=== PATIENT | male | born 1960 | race Caucasian/White ===

== ENCOUNTER → 2019-04-06 | Outpatient (CLI) | payer OTHER | LOC: NUC 07:32 | DX: I25.10 Atherosclerotic heart disease of native coronary artery without angina pectoris (principal); E78.5 Hyperlipidemia, unspecified; I10 Essential (primary) hypertension; I25.2 Old myocardial infarction; F17.200 Nicotine dependence, unspecified, uncomplicated; Z79.899 Other long term (current) drug therapy ==

== ENCOUNTER → 2019-10-08 | Outpatient (CLI) | payer OTHER ==
--- NOTE | 2019-10-08 13:01 | 2DMMODE ---
[facility] [address] 2 D/M-MODE ECHOCARDIOGRAM Name: DELIA MIGUEL Room #: REG [facility].#: [id number] Admission: 10/08/19 Attend Phys: Raymon Cobb MD Discharge: Date of : 56 Report #: [id number] THIS REPORT FOR: cc: Johana Franco MD, Emily G. MD Park, Jin S. MD ~ APPROVED REPORT Study performed: 10/08/2019 10:15:15 EXAM: Comprehensive 2D, Doppler, and color-flow Echocardiogram Patient Location: Out-Patient BSA: 2.24 HR: 54 bpm BP: 128/86 mmHg Rhythm: NSR Other Information Study Quality: Good Indications CAD 2D Dimensions IVSd: 18.06 (7-11mm) LVOT Diam: 19.39 (18-24mm) LVDd: 41.45 mm PWd: 12.42 (7-11mm) LVDs: 29.11 (25-40mm) Aortic Root: 30.31 mm IVC: 13.00 mm Volumes Left Atrial Volume (Systole) Single Plane 4CH: 38.34 mL Single Plane 2CH: 37.34 mL LA ESV Index: 19.00 mL/m2 Aortic Valve AoV Peak Suresh.: 1.21 m/s AO Peak Gr.: 5.88 mmHg LVOT Max P.00 mmHg LVOT Max V: 1.00 m/s OMID Vmax: 2.43 cm2 Mitral Valve E/A Ratio: 1.2 [facility] [place] [address] 2 D/M-MODE ECHOCARDIOGRAM Name: DELIA MIGUEL Room #: REG [facility]#: [id number] Admission: 10/08/19 Attend Phys: Raymon Cobb MD Discharge: Date of : 56 Report #: [id number] MV Decel. Time: 224.90 ms MV E Max Suresh.: 0.67 m/s MV A Suresh.: 0.55 m/s MV PHT: 65.22 ms IVRT: 115.34 ms Pulmonary Valve PV Peak Suresh.: 0.85 m/s PV Peak Gr.: 2.91 mmHg Pulmonary Vein P Vein S: 0.49 m/s P Vein A: 0.31 m/s P Vein D: 0.53 m/s P Vein A Dur.: 92.3 msec P Vein S/D Ratio: 0.92 Tricuspid Valve TR Peak Suresh.: 2.19 m/s TR Peak Gr.: 19.18 mmHg PA Pressure: 24.00 mmHg Left Ventricle The left ventricle is normal size. There is normal left ventricular wall thickness. The left ventricular systolic function is normal. LVEF is 60%. Right Ventricle The right ventricle is normal size. The right ventricular systolic function is normal. Atria The left atrium size is normal. The right atrium size is normal. Aortic Valve The aortic valve is normal in structure. No aortic regurgitation is present. There is no aortic valvular stenosis. Mitral Valve The mitral valve is normal in structure. Mild mitral regurgitation. No evidence of mitral valve stenosis. Tricuspid Valve The tricuspid valve is normal in structure. Mild tricuspid regurgitation. Pulmonic Valve The pulmonary valve is normal in structure. There is no pulmonic [facility] [address] [place] [address] 2 D/M-MODE ECHOCARDIOGRAM Name: DELIA MIGUEL Room #: REG [facility]#: [id number] Admission: 10/08/19 Attend Phys: Raymon Cobb MD Discharge: Date of : 56 Report #: [id number] valvular regurgitation. Great Vessels The aortic root is normal in size. IVC is normal in size and collapses >50% with inspiration. Pericardium There is no pericardial effusion. <Conclusion> The left ventricle is normal size. The left ventricular systolic function is normal. The right ventricle is normal size. The left atrium size is normal. The aortic valve is normal in structure. Mild mitral regurgitation. Mild tricuspid regurgitation. <ELECTRONICALLY SIGNED> By: Raymon Cobb MD 10/08/19 1300 1300 1300 Raymon Cobb MD /INF
== END ==
LOC: CV 09:28
DX: I08.1 Rheumatic disorders of both mitral and tricuspid valves (principal); I25.10 Atherosclerotic heart disease of native coronary artery without angina pectoris

== ENCOUNTER → 2020-04-07 | Outpatient (CLI) | payer OTHER | LOC: SJCVC 11:04 | PROVIDERS: ATTEND Internal Medicine Cardiovascular Disease | DX: I25.10 Atherosclerotic heart disease of native coronary artery without angina pectoris (principal); E78.00 Pure hypercholesterolemia, unspecified; I10 Essential (primary) hypertension; F17.210 Nicotine dependence, cigarettes, uncomplicated; Z79.899 Other long term (current) drug therapy ==

== ENCOUNTER → 2021-01-05 | Outpatient (CLI) | payer OTHER | LOC: SJCVCIMAG 08:03 | PROVIDERS: ATTEND Internal Medicine Cardiovascular Disease | DX: I70.202 Unspecified atherosclerosis of native arteries of extremities, left leg (principal); M79.661 Pain in right lower leg; M79.662 Pain in left lower leg ==

== ENCOUNTER → 2021-01-16 | Outpatient (CLI) | payer OTHER ==
[~2021-01-16] VITALS: Ht 185.4 cm; Wt 96.2 kg
[~2021-01-16] MED LIST: ASA81BEC PO; CARVEDILOL12.5 MG PO; DIAZEPAM 5 MG5 M1 PO; LISINOPRIL20 MG PO; MELOXICAM15 MG PO; PLAVIX 75 MG TA75 MG PO; ROSUVASTATIN CA40 MG PO
[2021-01-16 07:00] VITALS: BP 136/85
[2021-01-16 07:45] LABS: HEMOGLOBIN 14.6 gm/dL (14.0-18.0); MCH 31.2 pg (26.0-34.0); MCV 91.8 fL (80.0-100.0); RBC 4.68 mil/uL (4.50-6.00); RDW 13.8 % (10.5-14.5); WBC 7.7 thou/uL (4.0-11.0)
[2021-01-16 07:47] LABS: CALCIUM 8.8 mg/dL (8.5-10.1); POTASSIUM 3.9 mmol/L (3.5-5.1)
== END | disposition home or self-care (01) ==
LOC: CATH 06:31
PROVIDERS: ATTEND Nuclear Medicine Nuclear Cardiology
DX: I70.212 Atherosclerosis of native arteries of extremities with intermittent claudication, left leg (principal); M79.605 Pain in left leg; I70.1 Atherosclerosis of renal artery; I10 Essential (primary) hypertension; I25.10 Atherosclerotic heart disease of native coronary artery without angina pectoris; E78.00 Pure hypercholesterolemia, unspecified; I25.2 Old myocardial infarction; F17.210 Nicotine dependence, cigarettes, uncomplicated; Z98.890 Other specified postprocedural states; Z79.899 Other long term (current) drug therapy; Z96.653 Presence of artificial knee joint, bilateral

== ENCOUNTER → 2021-04-26 | Outpatient (CLI) | payer OTHER | LOC: SJCVCIMAG 08:20 | PROVIDERS: ATTEND Nuclear Medicine Nuclear Cardiology | DX: I65.23 Occlusion and stenosis of bilateral carotid arteries (principal); M79.605 Pain in left leg; M79.604 Pain in right leg; I73.9 Peripheral vascular disease, unspecified ==

== ENCOUNTER → 2021-07-04 | Outpatient (CLI) | payer OTHER | LOC: SJCVCIMAG 06-20 15:56 | PROVIDERS: ATTEND Internal Medicine Cardiovascular Disease | DX: I25.10 Atherosclerotic heart disease of native coronary artery without angina pectoris (principal) ==

== ENCOUNTER → 2021-07-18 | Outpatient (CLI) | payer OTHER ==
[~2021-07-18] VITALS: Ht 182.9 cm; Wt 90.7 kg
[2021-07-18 09:05] VITALS: BP 123/57
--- NOTE | 2021-07-18 12:30 | CATHLAB ---
[facility] [address] [address] INVASIVE PROCEDURE REPORT Name: DELIA MIGUEL Room #: REG [facility].#: [id number] Admission: 07/18/21 Attend Phys: Raymon Cobb MD Discharge: Date of : 56 Report #: [id number] THIS REPORT FOR: cc: BAMBI RAMIREZ FAMILY PHYSICIAN or PCP Raymon Cobb MD ~ APPROVED REPORT Study performed: 07/18/2021 09:11:18 Patient Details Patient Status: Out-Patient Room #: The patient is a 60 year-old male Event Personnel Raymon Cobb Carton Stapler, Mary Romo RN RN, Felicia Bates RTR Alyson Avila Ja'net RTR Monitor Procedures Performed Left Heart Cath w/or w/o Coronaries [id number] [facility] Art Access - R femoral artery* [id number] Initial Mod Sed Same Phys/QHP Gr5y [id number] Hemostasis with Manual pressure Indication Dyspnea, Positive stress test Risk Factors Peripheral Vascular Disease, Hypercholesterolemia, Coronary Artery DiseaseHypertension, Tobacco History () Previous Procedures/Diagnoses Previous PCI, Previous Femoral Procedure Procedure Narrative The patient was brought electively to the Cardiac Catheterization Laboratory and was prepped and draped in a sterile manner. The Right Groin^ was infiltrated with 1% Lidocaine subcutaneous anesthesia. A PINNACLE 4FR Sheath #[id number] sheath was inserted into the RFA^. Coronary angiography was performed using coronary diagnostic catheters. The right coronary system was accessed and visualized with a 4FR AL1 #[id number] catheter. The left coronary system was accessed and visualized with a 4FR JL4 #[id number] catheter. The left ventricle was accessed and visualized with a 4FR JR 4 #[id number] catheter. Left ventricular/Aortic Valve gradient assessed via catheter pullback. [facility] [address] [place] [address] INVASIVE PROCEDURE REPORT Name: DELIA MIGUEL Room #: REG [facility] [id number] Admission: 07/18/21 Attend Phys: Raymon Cobb MD Discharge: Date of : 56 Report #: [id number] Left ventriculogram was performed in 30 degree projection. Hemostasis was obtained with manual pressure following sheath removal without any complications. The patient tolerated the procedure well and there were no complications associated with the procedure. There was no hematoma. Intraoperative Conscious Sedation Sedation start time: 9:28 Case end Time: 9:58 Fentanyl 50 mcg Versed 1 mg Fluoro Time: 5.20 minutes Dose: DAP 8205.20 cGycm2 1211 mGy Contrast Type and Amount: Omnipaque 90 ml Coronary Angiography The patient's coronary anatomy is right dominant. Diagnostic Cath Left Main The left main artery is a large-caliber vessel, appears angiographically normal. LAD The LAD is a moderate-sized caliber vessel, traverses the anterior wall and wraps around the apex. There is a stent in the proximal segment, patent with mild restenosis. Diagonal 1 This is a moderate-sized caliber vessel, with mild plaquing in the proximal segment. This vessel supplies several branches as it courses down the anterolateral wall. Circumflex Left circumflex artery is a small caliber vessel, with no flow-limiting lesions. OM1 This is a small caliber vessel, with no flow-limiting lesions. 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 This vessel is calcified with mild to moderate disease in the proximal and mid segments, 30 to 50%. R PDA There is a moderate-sized caliber vessel, patent with no flow-limiting lesions. RPLV There is a moderate-sized caliber vessel, patent with no flow-limiting lesions. Left Ventriculography Left Ventriculography was not performed. Ejection Fraction was >55% based off patient's Nuclear Cardiac Stress Test. An LVEDP was measured and there is no gradient across the outflow tract. Hemodynamics [facility] [address] [place] [address] INVASIVE PROCEDURE REPORT Name: DELIA MIGUEL Room #: REG [facility]#: [id number] Admission: 07/18/21 Attend Phys: Raymon Cobb MD Discharge: Date of : 56 Report #: [id number] The aortic pressure is 110/58 mmHg with a mean of 80 mmHg. The left ventricular pressure is 101/7 mmHg with a mean of mmHg. The left ventricular end diastolic pressure is 18 mmHg. Pullback from the left ventricle to the aorta revealed no gradient across the aortic valve. Conclusion 1. There is a patent stent in the proximal LAD with mild restenosis. 2. 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 There is mild to moderate disease in the proximal and mid segments. 3. There is normal LV systolic function. 4. Recommend guideline directed medical therapy and aggressive risk factor management. <ELECTRONICALLY SIGNED> By: Raymon Cobb MD 07/18/21 1229 1229 1229 Raymon Cobb MD /INF
== END | disposition home or self-care (01) ==
LOC: CATH 07:02
PROVIDERS: ATTEND Internal Medicine Cardiovascular Disease
DX: R94.39 Abnormal result of other cardiovascular function study (principal); I25.10 Atherosclerotic heart disease of native coronary artery without angina pectoris; R06.00 Dyspnea, unspecified; I10 Essential (primary) hypertension; E78.00 Pure hypercholesterolemia, unspecified; E78.5 Hyperlipidemia, unspecified; F17.210 Nicotine dependence, cigarettes, uncomplicated; Z98.890 Other specified postprocedural states; Z79.899 Other long term (current) drug therapy; Z96.653 Presence of artificial knee joint, bilateral; Z79.82 Long term (current) use of aspirin

== ENCOUNTER → 2021-10-25 | Outpatient (CLI) | payer OTHER | LOC: SJCVCIMAG 12:24 | PROVIDERS: ATTEND Nuclear Medicine Nuclear Cardiology | DX: I73.9 Peripheral vascular disease, unspecified (principal); E78.00 Pure hypercholesterolemia, unspecified; Z72.0 Tobacco use; I25.10 Atherosclerotic heart disease of native coronary artery without angina pectoris; I10 Essential (primary) hypertension; Z98.890 Other specified postprocedural states; Z79.82 Long term (current) use of aspirin; Z79.899 Other long term (current) drug therapy ==